=== PATIENT | male | born 1980 | race Hispanic/Latino ===

== ENCOUNTER 2020-01-28 13:08 | Emergency (ER) | payer OTHER ==
--- NOTE | 2020-01-28 15:28 | RAD REPORT ---
EXAM DESCRIPTION: Geovanna Pa And Lat (2 Views)01/28/2020 2:50 pm CLINICAL HISTORY: Cough COMPARISON: None FINDINGS: Right lower lobe consolidation. Mild left lung opacities. . The heart is normal size IMPRESSION: Right lower lobe consolidation with mild left lung opacities likely pneumonia
--- NOTE | 2020-01-28 15:37 | ER ---
Nurse's Notes [facility] Name: Alexis Law Age: 40 yrs Sex: Male : 1980 Arrival Date: 01/28/2020 Time: 13:14 Bed 19 Private MD: Diagnosis: Pneumonia, unspecified organism Presentation: 01/27 13:33 Chief complaint: Patient states: Chest pain on the R side and R upper back pain started ca1 last night. It's like it hurts to breathe. I have been having cough for the 3-4 days with SOB. Denies fever. Reports chills. Denies N/V/D. Denies injury to chest and back. Coronavirus screen: Surgical mask placed on patient. Patient moved to private room, placed in contact and droplet isolation with eye protection until further assessment. Patient reports a cough. Patient reports shortness of breath or difficulty breathing. Patient denies measured and/or subjective temperature greater than 100.4F prior to today's visit. Patient denies travel on a cruise ship or to a country the [facility] currently lists as an affected area. Patient denies contact with known and/or suspected case of COVID-19. Ebola Screen: Patient negative for fever greater than or equal to 101.5 degrees Fahrenheit, and additional compatible Ebola Virus Disease symptoms Patient denies exposure to infectious person. Patient denies travel to an Ebola-affected area in the 21 days before illness onset. No symptoms or risks identified at this time. Initial Sepsis Screen: Does the patient meet any 2 criteria? No. Patient's initial sepsis screen is negative. Does the patient have a suspected source of infection? No. Patient's initial sepsis screen is negative. Risk Assessment: Do you want to hurt yourself or someone else? Patient reports no desire to harm self or others. Onset of symptoms was January 28, 2020. 13:33 Method Of Arrival: Ambulatory ca1 13:33 Acuity: LAM 3 ca1 Triage Assessment: 14:00 General: Appears in no apparent distress. comfortable. ls4 14:00 General: Behavior is calm, cooperative. Pain: Complains of pain in anterior aspect of ls4 right upper chest Pain currently is 8 out of 10 on a pain scale. Cardiovascular: Denies chest pain. Respiratory: Reports pain with respiration. GI: No deficits noted. No signs and/or symptoms were reported involving the gastrointestinal system. : No deficits noted. No signs and/or symptoms were reported regarding the genitourinary system. Derm: No deficits noted. No signs and/or symptoms reported regarding the dermatologic system. Musculoskeletal: No deficits noted. No signs and/or symptoms reported regarding the musculoskeletal system. Historical: - Allergies: 13:37 No Known Allergies; ca1 - Home Meds: 13:37 None [Active]; ca1 - PMHx: 13:37 None; ca1 - PSHx: 13:37 None; ca1 - Immunization history:: Adult Immunizations up to date. - Social history:: Smoking status: Patient denies any tobacco usage or history of. Screenin:00 Abuse screen: Denies threats or abuse. Denies injuries from another. Nutritional ls4 screening: No deficits noted. Tuberculosis screening: No symptoms or risk factors identified. Fall Risk None identified. Vital Signs: 13:33 BP 120 / 70; Pulse 83; Resp 18 S; Temp 97.2(TE); Pulse Ox 100% on R/A; Weight 86.18 kg ca1 (R); Height 6 ft. 0 in. (182.88 cm) (R); Pain 9/10; 13:33 Body Mass Index 25.77 (86.18 kg, 182.88 cm) ca1 ED Course: 13:14 Patient arrived in ED. as 13:37 Triage completed. ca1 13:37 Arm band placed on right wrist. ca1 14:00 Cleopatra Floyd, RN is Primary Nurse. ls4 14:00 No apparent distress. ls4 14:00 Patient has correct armband on for positive identification. Bed in low position. Call ls4 light in reach. Side rails up X 1. swage toolsetter on. Pulse ox on. NIBP on. Warm blanket given. Pillow given. Verbal reassurance given. 14:00 No provider procedures requiring assistance completed. Patient did not have IV access ls4 during this emergency room visit. Patient maintains SpO2 saturation greater than 95% on room air. 14:17 Minerva Villasenor FNP-C is PHCP. kb 14:17 Jose Champagne MD is Attending Physician. kb 14:51 Chest Pa And Lat (2 Views) XRAY In Process Unspecified. EDMS Administered Medications: No medications were administered Outcome: 15:36 Discharge ordered by . kb 16:11 Discharged to home ambulatory. ls4 16:11 Condition: stable 16:11 Discharge instructions given to patient, Instructed on discharge instructions, follow ls4 up and referral plans. medication usage, Demonstrated understanding of instructions, follow-up care, medications, Prescriptions given X 2. 16:12 Patient left the ED. ls4 Addendum: 01/31/2020 10:17 Addendum: Other Dr. Palmer notified pt of positive COVID result, advised to i w quarantine for at least 14 days and until symptom free for at least 72 hours. Signatures: Dispatcher [employer] EDLA Minerva Villasenor, POULTRY BREEDER-C POULTRY BREEDER-Safia Alcaraz Irene, RN RN iw Stewart, Lisa, RN RN ls4 Amber Landin RN RN ca1
--- NOTE | 2020-01-28 15:37 | EDPHYS ---
Physician Documentation [facility] Name: Alexis Law Age: 40 yrs Sex: Male : 1980 Arrival Date: 01/28/2020 Time: 13:14 Bed 19 Private MD: ED Physician Jose Champagne HPI: 01/27 15:16 This 40 yrs old Male presents to ER via Ambulatory with complaints of Chest kb Pain, Shortness Of Breath, Back Pain. 15:16 The patient or guardian reports cough, that is intermittent, described as mild, with no kb sputum. Onset: The symptoms/episode began/occurred 4 day(s) ago. Severity of symptoms: At their worst the symptoms were mild, in the emergency department the symptoms are unchanged. Modifying factors: The symptoms are alleviated by nothing, the symptoms are aggravated by nothing. Associated signs and symptoms: Pertinent positives: chest pain, Pertinent negatives: diarrhea, ear ache, fever, nausea, rhinorrhea, sore throat, vomiting. The patient has not experienced similar symptoms in the past. The patient has not recently seen a physician. Pt reports cough for 4 days and right sided chest pain that is worse with stretching/moving/breathing. States it feels like he pulled a muscle. Reports loss of taste and smell. Unknown if he has had fever, but woke up in a sweat last night. Historical: - Allergies: 13:37 No Known Allergies; ca1 - Home Meds: 13:37 None [Active]; ca1 - PMHx: 13:37 None; ca1 - PSHx: 13:37 None; ca1 - Immunization history:: Adult Immunizations up to date. - Social history:: Smoking status: Patient denies any tobacco usage or history of. ROS: 15:15 Constitutional: Negative for fever, chills, and weight loss, ENT: Negative for injury, kb pain, and discharge, Neck: Negative for injury, pain, and swelling, Abdomen/GI: Negative for abdominal pain, nausea, vomiting, diarrhea, and constipation, Back: Negative for injury and pain, MS/Extremity: Negative for injury and deformity, Skin: Negative for injury, rash, and discoloration, Neuro: Negative for headache, weakness, numbness, tingling, and seizure. 15:15 Cardiovascular: Positive for chest pain, of the anterior aspect of right upper chest, Negative for edema, orthopnea, palpitations, paroxysmal nocturnal dyspnea. 15:15 Respiratory: Positive for cough, Negative for dyspnea on exertion, hemoptysis, orthopnea, pleurisy, shortness of breath, sputum production, wheezing. Exam: 15:15 Constitutional: This is a well developed, well nourished patient who is awake, alert, kb and in no acute distress. Head/Face: Normocephalic, atraumatic. ENT: Nares patent. No nasal discharge, no septal abnormalities noted. Tympanic membranes are normal and external auditory canals are clear. Oropharynx with no redness, swelling, or masses, exudates, or evidence of obstruction, uvula midline. Mucous membranes moist. Neck: Trachea midline, no thyromegaly or masses palpated, and no cervical lymphadenopathy. Supple, full range of motion without nuchal rigidity, or vertebral point tenderness. No Meningismus. Chest/axilla: Normal chest wall appearance and motion. Nontender with no deformity. No lesions are appreciated. Cardiovascular: Regular rate and rhythm with a normal S1 and S2. No gallops, murmurs, or rubs. Normal PMI, no JVD. No pulse deficits. Respiratory: Lungs have equal breath sounds bilaterally, clear to auscultation and percussion. No rales, rhonchi or wheezes noted. No increased work of breathing, no retractions or nasal flaring. Abdomen/GI: Soft, non-tender, with normal bowel sounds. No distension or tympany. No guarding or rebound. No evidence of tenderness throughout. Skin: Warm, dry with normal turgor. Normal color with no rashes, no lesions, and no evidence of cellulitis. MS/ Extremity: Pulses equal, no cyanosis. Neurovascular intact. Full, normal range of motion. Neuro: Awake and alert, GCS 15, oriented to person, place, time, and situation. Cranial nerves II-XII grossly intact. Motor strength 5/5 in all extremities. Sensory grossly intact. Cerebellar exam normal. Normal gait. Vital Signs: 13:33 BP 120 / 70; Pulse 83; Resp 18 S; Temp 97.2(TE); Pulse Ox 100% on R/A; Weight 86.18 kg ca1 (R); Height 6 ft. 0 in. (182.88 cm) (R); Pain 9/10; 13:33 Body Mass Index 25.77 (86.18 kg, 182.88 cm) ca1 MDM: 14:17 Patient medically screened. kb 15:12 Data reviewed: vital signs, nurses notes. Data interpreted: Pulse oximetry: on room air kb is 100 %. Interpretation: normal. Counseling: I had a detailed discussion with the patient and/or guardian regarding: the historical points, exam findings, and any diagnostic results supporting the discharge/admit diagnosis, lab results, radiology results, the need for outpatient follow up, a family practitioner, to return to the emergency department if symptoms worsen or persist or if there are any questions or concerns that arise at home. 01/27 14:55 Order name: Flu kb 01/27 14:55 Order name: COVID-19 kb 01/27 13:40 Order name: Chest Pa And Lat (2 Views) XRAY; Complete Time: 15:33 kb 01/27 14:17 Order name: EKG; Complete Time: 14:18 kb 01/27 14:17 Order name: EKG - Nurse/Tech; Complete Time: 14:22 kb Administered Medications: No medications were administered Disposition: 19:07 Co-signature as Attending Physician, Jose Champagne MD. rn Disposition: 01/28/20 15:36 Discharged to Home. Impression: Pneumonia, unspecified organism. - Condition is Stable. - Discharge Instructions: Community-Acquired Pneumonia, Adult, [id number], COVID-19. - Prescriptions for Zithromax 500 mg Oral Tablet - take 1 tablet by ORAL route once daily for 5 days; 5 tablet. - Medication Reconciliation Form, Thank You Letter, Antibiotic Education, Prescription Opioid Use, Work release form form. - Follow up: Emergency Department; When: As needed; Reason: Worsening of condition. Follow up: Private Physician; When: 2 - 3 days; Reason: Recheck today's complaints, Continuance of care, Re-evaluation by your physician. Signatures: Dispatcher [employer] Minerva Devi, HATCHERY LABORER-C HATCHERY LABORER-Jose Mack MD MD rn Stewart, Lisa, RN RN ls4 Amber Landin RN RN ca1 Corrections: (The following items were deleted from the chart) 16:12 15:36 01/28/2020 15:36 Discharged to Home. Impression: Pneumonia, unspecified organism. ls4 Condition is Stable. Discharge Instructions: COVID-19, Community-Acquired Pneumonia, Adult, [id number]. Prescriptions for Zithromax 500 mg Oral Tablet - take 1 tablet by ORAL route once daily for 5 days; 5 tablet. and Forms are Medication Reconciliation Form, Thank You Letter, Antibiotic Education, Prescription Opioid Use. Follow up: Emergency Department; When: As needed; Reason: Worsening of condition. Follow up: Private Physician; When: 2 - 3 days; Reason: Recheck today's complaints, Continuance of care, Re-evaluation by your physician. kb
[2020-01-28] MEDS ORDERED: AZITHROMYCIN 250 MG TAB ONE (16:14)
[2020-01-28 16:24] VITALS: BP 120/70; TEMP 97.2; O2SAT 100
--- NOTE | 2020-01-29 12:24 | EKG ---
Test Date: 2020-01-28 Test Time: 13:41:24 Hat Body Inspector: CHAD MEASUREMENT RESULTS: Intervals: Rate: 83 TN: 196 QRSD: 88 QT: 364 QTc: 427 [place]: P: 59 TN: 196 QRS: 132 T: 26 INTERPRETIVE STATEMENTS: Normal sinus rhythm Right axis deviation Septal infarct, age undetermined Abnormal ECG No previous ECG available for comparison Electronically Signed On 01-29-20 12:22:28 CDT by Drake Weber
== END 2020-01-28 16:12 | disposition home or self-care (01) ==
LOC: ER 13:08
DX: U07.1 COVID-19 (principal); J12.89 Other viral pneumonia
CPT/HCPCS: 93005; 87804 ×2; 71046; 99284; U0001